=== PATIENT | male | born 1975 | race Caucasian/White ===

== ENCOUNTER 2023-11-28 06:07 | Day surgery (SDC) | payer OTHER, SELFPAY ==
[2023-11-28] VITALS (12 sets, daily range): BP systolic 115–161; BP diastolic 87–110; PULSE 64–93; RESP 16; TEMP 36.4–37.3; O2SAT 94–98; BMI 29.1
[2023-11-28] MEDS: SODIUM CHLORIDE 0.9 % (FLUSH) 10 ML SYRINGE IVF (06:45)
[2023-11-28] MEDS: LACTATED RINGERS 1000 ML 1,000 ML 100 ML IV ×2 (06:45→08:41)
--- NOTE | 2023-11-28 07:22 | W.PM.H&PU ---
History & Physical Update History & Physical Update H&P Reviewed and patient assessed: No changes noted
[2023-11-28] MEDS: CEFAZOLIN 2 GM INJ IVP (07:40)
[2023-11-28] MEDS: BUPIVACAINE 0.25% 30 ML INJECTION (08:00)
--- NOTE | 2023-11-28 08:14 | PM.GSPRC ---
Operative Note Date of procedure: 11/28/23 Pre-op diagnosis: 1. Symptomatic umbilical hernia. Post-op diagnosis: Same Type of Procedure: 1. Open umbilical hernia repair without mesh. Indications: 48-year-old male was seen in clinic for evaluation of an umbilical bulge that has been present for years. Patient did not feel that the bulge has increased in size but he occasionally had pain at the bulge when he pushed on it or did heavy lifting. He denies any episodes of incarceration. On clinical exam in the center of the umbilicus there was a small umbilical bulge present, and that was tender to palpation and with reduction of the hernia. Given patient's clinical history and his symptoms, an open umbilical hernia repair was recommended. The procedure was discussed in detail. The risks associated procedure including infection, bleeding, injury to intra-abdominal organs, and hernia recurrence were all discussed with the patient, and he agreed to proceed. Procedure Description: After discussing the risks and benefits of the procedure, the patient signed informed consent.? The operative site was marked and the patient was brought to the operating room and placed on the operating table in supine position.? Care was taken to pad the patient's pressure points.?? The patient was then intubated by anesthesia.?? The operative site was then prepped and draped in the usual sterile fashion.? A time-out was then performed. Local anesthetic was injected at the surgical site. A curvilinear skin incision was made with a scalpel just above umbilicus. Subcutaneous tissue was dissected with electrocautery down to the hernia sac and anterior fascia. The hernia sac was dissected off of the anterior fascia and subcutaneous fat around the fascial defect was dissected away from the fascial defect with cautery. preperitoneal fat was protruding through the fascial defect. The fat was mobilized of fascia and reduced. The fascial defect was only about 7 mm with strong surrounding fascia. I elected to proceed with primary repair of this umbilical hernia. The fascial defect was then closed with interrupted 0-0 Neurolon stitches. Additional local anesthetic was injected into subcutaneous tissues. An umbilicus was tacked down with interrupted 3-0 Vicryl stitches. Subdermal layer was closed with interrupted sutures using 3-0 Vicryl. Skin was closed with 4-0 Monocryl using subcuticular stitch. Steri strips were applied over the incision. I then placed a folded sterile 4x4 gauze over the incision and covered it with tape. All counts were correct at the end of the case. Patient tolerated the procedure well and was transferred to PACU without any complications. Findings: small fascial defect repaired primarily. Anesthesia: GETA Surgeon: Chandu Griffith MD Estimated blood loss (mL): 2 Condition: stable Disposition: PACU
--- NOTE | 2023-11-28 08:22 | W.ANESCHARGE ---
Anesthesia Charges Start Date/Time Anesthesia Start Date: 11/28/23 Anesthesia Start Time: 07:22 Stop Date/Time Anesthesia Stop Date: 11/28/23 Anesthesia Stop Time: 08:18
--- NOTE | 2023-11-28 10:25 | W.ANESCHARGE ---
Anesthesia Charges Start Date/Time Anesthesia Start Date: 11/28/23 Anesthesia Start Time: 07:22 Stop Date/Time Anesthesia Stop Date: 11/28/23 Anesthesia Stop Time: 08:18
== END 2023-11-28 09:45 | disposition home or self-care (01) ==
PROVIDERS: PCP Physician Assistant Medical; Visit Provider Surgery
PROC: (CPT 49591; principal; 2023-11-28 07:30)
DX: K42.9 Umbilical hernia without obstruction or gangrene (principal)
CPT/HCPCS: 49591; 00750; 00830; J0665; J0690; J2250; J2405; J2704; J3010; J3490; J7120